=== PATIENT | female | born 1950 | race Caucasian/White ===

== ENCOUNTER 2017-07-31 07:07 | Day surgery (SDC) | payer OTHER ==
[2017-07-31] MEDS: BUPIVACAINE 0.25% (MPF) 30 ML INJ INJ
[~2017-07-31 07:07] MED LIST: CEFAZOLIN 1 GM INJ; CEFAZOLIN 1 GM/50 ML (PMX) 50 ML IVPB; SOD CHLORIDE 0.9% 1,000 ML IV
[2017-07-31] MEDS ORDERED: METOCLOPRAMIDE 10 MG INJ (09:05)
[2017-07-31] MEDS ORDERED: ROCURONIUM 50 MG INJ (09:05)
[2017-07-31] MEDS ORDERED: PROPOFOL 20 ML (09:05)
[2017-07-31] MEDS ORDERED: MIDAZOLAM 1 MG/ML 2 ML INJ (09:05)
[2017-07-31] MEDS ORDERED: ONDANSETRON 4 MG INJ (09:05)
[2017-07-31] MEDS ORDERED: ROPIVACAINE 0.5 % 30 ML VIAL (09:05)
[2017-07-31] MEDS ORDERED: BUPIVACAINE 0.25% (MPF) 30 ML INJ (09:39)
[2017-07-31] MEDS ORDERED: HYDROmorphONE (0.2 MG/ML) 10ML SYG IV ×2 (10:00)
[2017-07-31] MEDS ORDERED: MEPERIDINE 25 MG INJ IV (10:00)
[2017-07-31] MEDS ORDERED: DIPHENHYDRAMINE 50 MG INJ IV (10:00)
[2017-07-31] MEDS ORDERED: OXYCODONE/ACETAMINOPHEN (5/325) TAB PO (10:00)
[2017-07-31] MEDS ORDERED: NEOSTIGMINE 3 MG/3 ML SYRINGE (10:01)
[2017-07-31] MEDS ORDERED: HYDROCODONE/APAP (5/325) TAB PO (10:30)
[2017-07-31] MEDS: ONDANSETRON 4 MG INJ IV (10:32)
[2017-07-31] MEDS: HYDROmorphONE (0.2 MG/ML) 10ML SYG IV (10:33)
[2017-07-31] MEDS: OXYCODONE/ACETAMINOPHEN (5/325) TAB PO (11:39)
== END 2017-07-31 12:58 | disposition home or self-care (01) ==
LOC: SDS 07:07
DX: K43.9 Ventral hernia without obstruction or gangrene (principal); E78.5 Hyperlipidemia, unspecified; E11.9 Type 2 diabetes mellitus without complications
CPT/HCPCS: 49653; 82962; 88302

== ENCOUNTER 2018-07-02 05:43 | Day surgery (SDC) | payer OTHER ==
[2018-07-02] MEDS ORDERED: FENTAnyl 50 MCG/ML VIAL ×2 (08:00→08:01)
[2018-07-02] MEDS ORDERED: MIDAZOLAM 1 MG/ML 2 ML INJ (08:00)
== END 2018-07-02 12:26 | disposition home or self-care (01) ==
LOC: GIL 05:43
DX: K29.50 Unspecified chronic gastritis without bleeding (principal); K21.9 Gastro-esophageal reflux disease without esophagitis; I10 Essential (primary) hypertension; E11.9 Type 2 diabetes mellitus without complications; Z79.84 Long term (current) use of oral hypoglycemic drugs
CPT/HCPCS: 43239; 82962; 88305; 88312